=== PATIENT | male | born 1955 | race American Indian/Alaskan Native ===

== ENCOUNTER 2020-11-16 15:07 | Emergency (ER) | payer MEDICAID ==
[2020-11-16] MEDS ORDERED: ASPIRIN 325 MG TAB PO ONE (15:20)
[2020-11-16 15:43] LABS: Basophils % (Auto) 0.5 % (0.0-1.8); Eosinophils # (Auto) 0.1 K/mm3 (0.0-0.4); Eosinophils % (Auto) 1.1 % (0.0-4.3); Hematocrit 41.9 % (35.5-45.6); Hemoglobin 14.3 gm/dl (11.8-15.2); Lymphocytes # (Auto) 1.3 K/mm3 (1.2-5.4); Lymphocytes % (Auto) 14.5 % (13.4-35.0); Mean Corpuscular HGB Conc 34 % (32-34); Mean Corpuscular Volume 91 fl (84-94); Monocytes # (Auto) 0.5 K/mm3 (0.0-0.8); Monocytes % (Auto) 5.3 % (0.0-7.3); Platelet Count 195 K/mm3 (140-440); Red Blood Count 4.58 M/mm3 (3.65-5.03); Red Cell Distribution Width 15.5 % (13.2-15.2)
[2020-11-16 16:08] LABS: Alanine Aminotransferase 8 units/L (7-56); BUN/Creatinine Ratio 9; Blood Urea Nitrogen 17 mg/dL (9-20); Calcium 9.4 mg/dL (8.4-10.2); Hemolysis Index 3
--- NOTE | 2020-11-16 16:12 | XRay Report ---
CHEST 2 VIEWS INDICATION: chest pain. COMPARISON: None FINDINGS: SUPPORT DEVICES: None. HEART: Within normal limits. LUNGS/PLEURA: No acute air space or interstitial disease. No pneumothorax. ADDITIONAL FINDINGS: None. IMPRESSION: 1. No acute findings. Signer Name: Tong Nick MD Signed: 11/16/2020 4:08 PM Workstation Name: [id number]
[2020-11-16 22:54] VITALS: BP 177/111
--- NOTE | 2020-11-16 22:59 | Emergency Department Report ---
ED General Adult HPI - General Chief complaint: High BP Stated complaint: ELEVATED BLOOD PRESSURE Time Seen by Provider: 11/16/20 22:48 Source: patient Mode of arrival: Ambulatory Limitations: No Limitations - History of Present Illness Initial comments: Chief complaint: "The doctor sent me in." HPI: This is a 65-year-old male with history of hypertension on at least 3 antihypertensive medications including amlodipine benazepril who presents with elevated blood pressure at the physician's office. Blood pressure 185/100. Patient did not take his morning doses of medications. He states that normally he is compliant with medication. However he was busy running errands today. He denies any symptoms. He has been in good health. Denies headache, blurry vision, chest pain, paresthesias, abdominal pain. Patient plans to take his evening home dose of his medications. Current blood pressure on monitor 177/111 -: Gradual, This afternoon Severity scale (0 -10): 0 Consistency: now resolved Improves with: none Worsens with: none Associated Symptoms: denies other symptoms - Related Data Allergies Allergy/AdvReac Type Severity Reaction Status Date / Time No Known Allergies Allergy Verified 11/16/20 15:20 ED Review of Systems ROS: Stated complaint: ELEVATED BLOOD PRESSURE Other details as noted in HPI Comment: All other systems reviewed and negative Constitutional: denies: fever, malaise Respiratory: denies: cough, shortness of breath Gastrointestinal: denies: abdominal pain, nausea, vomiting Neurological: denies: headache ED Past Medical Hx - Past Medical History Previous Medical History?: Yes Hx Hypertension: Yes - Surgical History Past Surgical History?: No - Social History Smoking Status: Current Every Day Smoker Substance Use Type: None ED Physical Exam - General Limitations: No Limitations General appearance: alert, in no apparent distress, other (Appears well, appears healthy) - Head Head exam: Present: atraumatic, normocephalic - Eye Eye exam: Present: normal appearance - ENT ENT exam: Present: mucous membranes moist - Neck Neck exam: Present: normal inspection, full ROM - Respiratory Respiratory exam: Present: normal lung sounds bilaterally. Absent: respiratory distress, wheezes, rales, rhonchi - Cardiovascular Cardiovascular Exam: Present: regular rate, normal rhythm, normal heart sounds. Absent: systolic murmur, diastolic murmur, rubs, gallop - GI/Abdominal GI/Abdominal exam: Present: soft, normal bowel sounds. Absent: distended, tenderness, guarding, rebound - Rectal Rectal exam: Present: deferred - Extremities Exam Extremities exam: Present: normal inspection - Neurological Exam Neurological exam: Present: alert, oriented X3 - Psychiatric Psychiatric exam: Present: normal affect, normal mood - Skin Skin exam: Present: warm, dry, intact, normal color. Absent: rash ED Course Vital Signs 11/16/20 11/16/20 15:17 22:52 Temperature 98.5 F Pulse Rate 71 70 Respiratory 12 20 Rate Blood Pressure 218/110 Blood Pressure 177/111 [Right] O2 Sat by Pulse 97 98 Oximetry ED Medical Decision Making - Lab Data Result diagrams: 11/16/20 15:25 11/16/20 15:25 Laboratory Results - last 24 hr 11/16/20 11/16/20 11/16/20 15:25 15:25 18:45 WBC 9.1 RBC 4.58 Hgb 14.3 Hct 41.9 MCV 91 MCH 31 MCHC 34 RDW 15.5 H Plt Count 195 Lymph % (Auto) 14.5 Sullivan % (Auto) 5.3 Eos % (Auto) 1.1 Baso % (Auto) 0.5 Lymph # (Auto) 1.3 Sullivan # (Auto) 0.5 Eos # (Auto) 0.1 Baso # (Auto) 0.0 Seg Neutrophils % 78.6 H Seg Neutrophils # 7.2 Sodium 139 Potassium 3.5 L Chloride 98.8 Carbon Dioxide 28 Anion Gap 16 BUN 17 Creatinine 2.0 H Estimated GFR 41 BUN/Creatinine Ratio 9 Glucose 109 H Calcium 9.4 Total Bilirubin 0.70 AST 17 ALT 8 Alkaline Phosphatase 99 Troponin T < 0.010 < 0.010 Total Protein 7.6 Albumin 4.0 Albumin/Globulin Ratio 1.1 11/16/20 21:06 WBC RBC Hgb Hct MCV MCH MCHC RDW Plt Count Lymph % (Auto) Sullivan % (Auto) Eos % (Auto) Baso % (Auto) Lymph # (Auto) Sullivan # (Auto) Eos # (Auto) Baso # (Auto) Seg Neutrophils % Seg Neutrophils # Sodium Potassium Chloride Carbon Dioxide Anion Gap BUN Creatinine Estimated GFR BUN/Creatinine Ratio Glucose Calcium Total Bilirubin AST ALT Alkaline Phosphatase Troponin T < 0.010 Total Protein Albumin Albumin/Globulin Ratio - EKG Data -: EKG Interpreted by Nd EKG shows normal: sinus rhythm, axis, intervals, QRS complexes, ST-T waves Rate: normal - EKG Data 11/16/20 23:05 EKG obtained 1531 EKG interpreted by me Sinus rhythm rate 70 bpm normal axis normal intervals no ST-T signs ischemia - Radiology Data Radiology results: report reviewed Chest radiographs: 2 views no acute findings according to radiology impression - Medical Decision Making 1. Asymptomatic hypertensive urgency: No indication of endorgan damage. Chemistry reflects chronic kidney disease. CBC CMP otherwise unremarkable. Troponin x3 negative. Chest radiograph without acute findings. Normal EKG. Repeat blood pressure 177/111. 2. Chronic kidney disease likely due to hypertension. Patient given referral to perinatal nurse. Critical care attestation.: If time is entered above; I have spent that time in minutes in the direct care of this critically ill patient, excluding procedure time. ED Disposition Clinical Impression: Hypertensive urgency, Chronic kidney disease Disposition: DC-01 TO HOME OR SELFCARE Is pt being admited?: No Does the pt Need Aspirin: No Condition: Stable Instructions: Chronic Kidney Disease, Adult, [id number] Additional Instructions: You need to see a kidney specialist. Your creatinine is 2.0 today. Please show results to your primary doctor and the kidney specialist. Referrals: KING MORALES MD [Staff Physician] - 3-5 Days
--- NOTE | 2020-11-18 17:27 | Electrocardiograph Report ---
[facility] Test Date: 2020-11-16 Test Time: 15:31:14 Pat Name: ASH KELLY Department: Room: Gender: [facility] Worker: INDIGO : 1955 Requested By: ED DOC Order Number: [id number] Reading MD: Curt Cuadra Measurements Intervals [place] Rate: 71 P: 39 WV: 171 QRS: 16 QRSD: 83 T: 43 QT: 379 QTc: 413 Interpretive Statements Sinus rhythm Probable left atrial enlargement No previous ECG available for comparison Electronically Signed On 11-18-2020 17:27:18 EDT by Curt Cuadra
== END 2020-11-16 23:17 | disposition home or self-care (01) ==
LOC: ED 15:07
DX: I16.0 Hypertensive urgency (principal); N18.9 Chronic kidney disease, unspecified; F17.200 Nicotine dependence, unspecified, uncomplicated
CPT/HCPCS: 36415; 71046; 80053; 84484; 85025; 93005; 99283